=== PATIENT | female | born 1965 | race Caucasian/White ===

== ENCOUNTER 2017-06-15 17:14 | Emergency (ER) | payer BC ==
[~2017-06-15] VITALS: Ht 165.1 cm; Wt 90.7 kg
== END 2017-06-15 23:55 | disposition home or self-care (01) ==
LOC: ER 17:14 → CPU-OBS 17:37 → ER 17:37
DX: R07.89 Other chest pain (principal)
CPT/HCPCS: G0378; G0379; 93005